=== PATIENT | female | born 1950 | race Caucasian/White ===

== ENCOUNTER 2016-07-12 12:08 | Emergency (ER) | payer MEDICARE ==
[2016-07-12 15:47] LABS: HEMOGLOBIN 14.2 gm/dl (12.3-15.3); RED BLOOD COUNT 4.57 M/UL (4.00-5.10); WHITE BLOOD COUNT 9.9 K/UL (4.5-11.0)
[2016-07-12 16:04] LABS: BUN/CREATININE RATIO 15 (0-10)
== END 2016-07-12 17:46 | disposition home or self-care (01) ==
LOC: ER1 12:08
PROVIDERS: Emergency Medicine
DX: M79.661 Pain in right lower leg (principal); R26.2 Difficulty in walking, not elsewhere classified; F17.200 Nicotine dependence, unspecified, uncomplicated
CPT/HCPCS: 36415; 73564; 80048; 85025; 93971; 99283